=== PATIENT | female | born 1975 | race Native Hawaiian/Other Pacific Islander ===

== ENCOUNTER 2016-10-04 08:46 | Day surgery (SDC) | payer BC ==
[~2016-10-04] VITALS: Ht 165.1 cm; Wt 68.0 kg
== END 2016-10-04 13:00 | disposition home or self-care (01) ==
LOC: OR 08:46
PROC: 0JQ70ZZ Repair Back Subcutaneous Tissue and Fascia, Open Approach (ICD-10-PCS; principal; 2016-10-04)
PROC: 0HB6XZZ Excision of Back Skin, External Approach (ICD-10-PCS; 2016-10-04)
DX: D17.1 Benign lipomatous neoplasm of skin and subcutaneous tissue of trunk (principal)
CPT/HCPCS: J0690; J2250; J2704; J3010; J3490

== ENCOUNTER 2019-07-15 13:03 | Outpatient (CLI) | payer BC | END 2019-07-15 19:18 | disposition home or self-care (01) | LOC: RAD 13:03 | DX: M25.562 Pain in left knee (principal) ==